=== PATIENT | female | born 1990 | race African-American/Black ===

== ENCOUNTER 2023-09-25 08:40 | Emergency (ER) | payer SELFPAY ==
[2023-09-25 10:19] LABS: Influenza A by NAA Not Detected (NotDetected); Influenza B by NAA Not Detected (NotDetected); SARS-CoV-2 NAA Rapid Test DETECTED (NotDetected)
== END 2023-09-25 10:30 | disposition home or self-care (01) ==
LOC: NAV ERS 08:40
DX: U07.1 COVID-19 (principal)
CPT/HCPCS: 99283

== ENCOUNTER 2023-10-02 00:45 | Emergency (ER) | payer BC, SELFPAY ==
[2023-10-02] MEDS ORDERED: Ibuprofen 800 MG TAB ONE (01:22)
[2023-10-02] MEDS ORDERED: Ondansetron ODT 4 MG TAB ONE (01:22)
[2023-10-02 02:00] LABS: Bilirubin Negative (Negative); Blood, Urine Negative (Negative); Clarity Clear (Clear); Glucose, Urine (Dipstick) Negative (Negative); Ketone, Urine Negative (Negative); Leukocyte Small (Negative); Nitrite Negative (Negative); Protein, Urine (Dipstick) Negative (Neg-Trace); Specific Gravity, Urine 1.025 (1.005-1.030); Urobilinogen 0.2 mg/dL (Less than 2)
[2023-10-02 02:01] LABS: Pregnancy Test - Urine (BHCG) Negative (Negative); Pregu Control Background? CLEAR/WHITE (CLR/WHITE); Pregu Control Bar Appear? YES (CONTROL BAR); Specific Gravity 1.025 (1.002-1.036)
[2023-10-02 02:09] LABS: Bacteria/HPF Rare-Few HPF (None Seen); CAUTI Indications for Culture Fever or rigors; RBC/HPF 0-3 HPF (0-3)
[2023-10-02 02:10] LABS: Mucous/LPF 1+ LPF (<2+)
[2023-10-02 02:11] LABS: Urine Culture Reflex No No
== END 2023-10-02 02:20 | disposition home or self-care (01) ==
LOC: NAV ERS 00:45
DX: B34.9 Viral infection, unspecified (principal); E11.9 Type 2 diabetes mellitus without complications; Z86.16 Personal history of COVID-19
CPT/HCPCS: 36416; 81001; 81025; 87804; 99284; Q0162

== ENCOUNTER 2023-11-25 21:07 | Emergency (ER) | payer BC ==
[~2023-11-25 21:07] MED LIST: Iopamidol 370 76% 100 ML VIAL ONE
[2023-11-25 22:20] LABS: Hematocrit 40.1 % (36.0-47.0); Hemoglobin 12.2 g/dL (12.0-16.0); Mean Corpuscular HGB CONC 30.5 g/dL (32.0-36.0); Mean Corpuscular Hemoglobin 22.8 pg (27.0-31.0); Mean Corpuscular Volume 74.6 fl (78.0-98.0); Mean Platelet Volume 7.3 fL (7.4-10.4); Platelet Count 285 10x3/uL (130-400); RBC Distribution Width 14.4 % (11.5-14.5); Red Blood Cell (RBC) Count 5.38 mill/uL (4.20-5.40); White Blood Cell (WBC) Count 6.8 10x3/uL (4.8-10.8)
[2023-11-25 22:21] LABS: #Basophils 0.1 thou/uL (0.0-0.2); #Eosinphils 0.2 thou/uL (0.0-0.7); #Lymphocytes 1.9 thou/uL (1.20-3.40); #Monocytes 0.8 thou/uL (0.11-0.59); #Neutrophils 3.9 thou/uL (1.40-6.50); %Basophils 1.5 % (0.0-1.0); %Eosinophils 2.2 % (0.0-10.0); %Lymphocytes 27.4 % (21.0-51.0); %Monocytes 11.5 % (0.0-10.0); %Neutrophils 57.4 % (42.0-75.0)
[2023-11-25 22:22] LABS: ALT (SGPT) 9 U/L (8-55); AST (SGOT) 14 U/L (5-34); Albumin 3.1 g/dL (3.5-5.0); Alkaline Phosphatase 68 U/L (40-110); Anion Gap 15 mmol/L (10-20); BUN (Urea Nitrogen) 13 mg/dL (7.0-18.7); Bilirubin, Total 0.4 mg/dL (0.2-1.2); Calc. Creatinine Clearance 0 mL/min (70-130); Calcium 8.7 mg/dL (7.8-10.44); Carbon Dioxide 23 mmol/L (22-29); Chloride 105 mmol/L (98-107); Estimated GFR 112; Globulin 4.4 g/dL (2.4-3.5); Glucose 108 mg/dL (70-105); Lipase 28 U/L (8-78); Potassium 3.7 mmol/L (3.5-5.1); Protein, Total 7.5 g/dL (6.0-8.3); Sodium 139 mmol/L (136-145)
[2023-11-25 22:23] LABS: Troponin I Less than 0.010 ng/mL (< 0.028)
[2023-11-25] MEDS ORDERED: Acetaminophen 325 MG TAB ONE (22:32)
== END 2023-11-25 23:58 | disposition home or self-care (01) ==
LOC: NAV ERS 21:07
DX: R07.89 Other chest pain (principal); R51.9 Headache, unspecified; E11.9 Type 2 diabetes mellitus without complications
CPT/HCPCS: 71046; 71275; 80053; 83690; 84484; 85025; 85379; 93005; Q9967